=== PATIENT | female | born 1990 | race Hispanic/Latino ===

== ENCOUNTER 2019-01-22 09:45 | Inpatient (IN) ==
[2019-01-22 10:15] LABS: URINE SOURCE VOIDED
[2019-01-22] MEDS ORDERED: AMPICILLIN 2 GM/NS 2 GM/100 ML IVPB IV ONE (10:20)
[2019-01-22] MEDS ORDERED: PEPCID PO PRN (10:20)
[2019-01-22] MEDS ORDERED: LR 500 ML IV ONE (10:20)
[2019-01-22] MEDS ORDERED: STADOL IV PRN (10:20)
[2019-01-22] MEDS ORDERED: PEPCID PO ONE (10:20)
[2019-01-22] MEDS ORDERED: REGLAN PO ONE (10:20)
[2019-01-22] MEDS ORDERED: ZOFRAN IV PRN (10:20)
[2019-01-22] MEDS ORDERED: PEPCID IV PRN (10:20)
[2019-01-22] MEDS ORDERED: KEFZOL 1 GM/D5W 1 GM/50 ML IVPB IV PRN (10:20)
[2019-01-22] MEDS ORDERED: LR 2,000 ML ONE (10:30)
[2019-01-22] MEDS ORDERED: LR 1,000 ML IV SCH (10:30)
[2019-01-22] MEDS ORDERED: AMPICILLIN 2 GM/NS 2 GM/100 ML IVPB ONE (10:30)
[2019-01-22] MEDS ORDERED: PITOCIN 30 UNITS/NS 30 UNIT/500 ML IV.SOLN IV SCH ×2 (10:30→14:15)
[2019-01-22] MEDS ORDERED: SODIUM CHLORIDE 0.9% INJ SCH (10:30)
[2019-01-22 10:56] LABS: BILIRUBIN URINE NEGATIVE (NEGATIVE); BLOOD URINE TRACE (NEGATIVE); CLARITY CLEAR (CLEAR); COLOR YELLOW; GLUCOSE URINE NEGATIVE (NEGATIVE); KETONE URINE TRACE mg/dL (NEGATIVE); LEUKOCYTES URINE 1+ (NEGATIVE); NITRITE URINE NEGATIVE (NEGATIVE); PH URINE 6.5; PROTEIN URINE NEGATIVE (NEGATIVE); SP GRAVITY URINE 1.015; UROBILINOGEN URINE NORMAL
[2019-01-22] MEDS ORDERED: MINERAL OIL PO ONE (10:56)
[2019-01-22] MEDS ORDERED: XYLOCAINE-MPF 1% INJ ONE (10:56)
[2019-01-22 11:00] LABS: BASO# 0.01 X1000 (0.0-0.2); BASO% 0.1 % (0.0-0.8); EOS# 0.06 X1000 (0.0-0.7); EOS% 0.7 % (0.0-10.0); HEMOGLOBIN 12.9 g/dL (12.0-16.0); IMM GRAN# 0.09 X1000 (0.0-0.04); LYMPH# 2.11 X1000 (1.2-3.4); MCH 29.1 PG (27-31); MCHC 33.1 g/dL (33-37); MONO% 6.8 % (1.7-9.3); MPV 11.5 FL (7.4-10.4); NEUT# 5.94 X1000 (1.4-6.5); NEUT% 67.4 % (42.2-75.2); PLT 234 X1000 (130-400); RBC 4.43 XMIL (4.2-5.4); RDW 15.3 % (11.5-14.5); WBC 8.81 X1000 (4.8-10.8)
[2019-01-22] MEDS ORDERED: FENTANYL-BUPIV-NS 2 MCG-0.1% 200 ML EPIDURAL SCH (11:00)
[2019-01-22 11:47] LABS: RAPID HIV PRESUMPTIVE NEGATIVE; RPR NON-REACTIVE (NONREACTIVE)
[2019-01-22 11:51] LABS: UR AMPHETAMINES QUAL NONE DETECTED (NONE DETECT); UR BARBITUATES QUAL NONE DETECTED (NONE DETECT); UR BENZODIAZEPIN QUAL NONE DETECTED (NONE DETECT); UR CANNABINOIDS QUAL NONE DETECTED (NONE DETECT); UR COCAINE QUAL NONE DETECTED (NONE DETECT); UR METHADONE QUAL NONE DETECTED (NONE DETECT); UR METHAMPHETAMINE QUAL NONE DETECTED (NONE DETECT); UR OPIATES QUAL NONE DETECTED (NONE DETECT); UR OXYCODONE QUAL NONE DETECTED (NONE DETECT); UR PCP QUAL NONE DETECTED (NONE DETECT); UR PROPOXYPHENE QUAL NONE DETECTED (NONE DETECT); UR TCA QUAL NONE DETECTED (NONE DETECT)
[2019-01-22] MEDS ORDERED: FENTANYL ONE (11:56)
[2019-01-22] MEDS ORDERED: MARCAINE 0.25% PF ONE (11:56)
--- NOTE | 2019-01-22 13:41 | HISTORY AND PHYSICAL ---
CHIEF COMPLAINT: Lower abdominal pain. HISTORY OF PRESENT ILLNESS: Patient presents to Labor and Delivery with complaint of regular contractions occurring every 2 to 3 minutes starting at 4 a.m. Reports good movement. Denies bleeding or leakage of fluid. The patient is a 28-year-old G3, P2-0-0-2 at 39w4d with 2 prior full- term vaginal deliveries and no stated complications, but no care with current . PAST MEDICAL HISTORY: GERD. PAST SURGICAL HISTORY: None. MEDICATIONS: vitamins and Tums. ALLERGIES: No known drug allergies. SOCIAL HISTORY: Denies tobacco, alcohol, or drug use. GYNECOLOGICAL HISTORY: Positive history of Chlamydia in 2013. No pelvic inflammatory disease. Menarche at age 17. OBSTETRICAL HISTORY: Two full-term vaginal deliveries. No complications. First in 2007, baby girl at 40 weeks and 5 days. Second in 2017, boy at 39 weeks. PHYSICAL EXAMINATION: VITAL SIGNS: Stable. GENERAL: No acute distress. Alert, awake, oriented x3. CARDIOVASCULAR: Regular rate and rhythm. RESPIRATORY: Clear to auscultation bilaterally. ABDOMEN: Gravid, nontender to palpation. EXTREMITIES: No calf tenderness. PELVIC: Sterile vaginal exam: 6 cm dilated, 80% effaced with bulging bag intact. External monitoring: baseline 145 beats per minute, moderate variability. Positive accelerations. Negative deceleration. [place]: 2 to 3 minutes. LABORATORY STUDIES: WBCs 8.1, hemoglobin 12.9, hematocrit 39, platelets 234,000. ASSESSMENT: Ms. Narvaez is a 28-year-old G3, P2-0-0-2 at 39 weeks and 4 days who presents to Labor and Delivery in early labor. PLAN: 1. Admit to Labor and Delivery. 2. Obtain routine labor labs. 3. Estimated weight 7 pounds. 4. Anticipate vaginal delivery. 5. IV pain medications or epidural p.r.n. pain management 6. Continuous monitoring 7. [facility]
[2019-01-22] MEDS ORDERED: XYLOCAINE-MPF 1% INJ PRN (14:11)
[2019-01-22] MEDS ORDERED: PITOCIN IM PRN (14:11)
[2019-01-22] MEDS ORDERED: ATARAX PO PRN (14:11)
[2019-01-22] MEDS ORDERED: CYTOTEC PO PRN (14:11)
[2019-01-22] MEDS ORDERED: M-M-R II VACCINE SUBQ ONE (14:11)
[2019-01-22] MEDS ORDERED: PERI MEDS (DERMOPLAST/NUPERCAINAL/TUCKS) MISC PRN (14:11)
[2019-01-22] MEDS ORDERED: BOOSTRIX VACCINE IM ONE (14:11)
[2019-01-22] MEDS ORDERED: BENADRYL PO PRN (14:11)
[2019-01-22] MEDS ORDERED: BENADRYL IV PRN (14:11)
[2019-01-22] MEDS ORDERED: MINERAL OIL PO PRN (14:11)
[2019-01-22] MEDS ORDERED: AMBIEN PO PRN (14:11)
[2019-01-22] MEDS ORDERED: HYDROXYZINE IM PRN (14:11)
[2019-01-22] MEDS ORDERED: PITOCIN 20 UNITS/NS 20 UNITS/1,000 ML IV.SOLN IV SCH (14:15)
[2019-01-22] MEDS ORDERED: AMPICILLIN 1 GM/NS 1 GM/50 ML IVPB IV SCH (14:22)
[2019-01-22 15:03] LABS: RUBELLA SCREEN IMMUNE (IMMUNE)
[2019-01-22] MEDS: MOTRIN PO PRN (22:38)
[2019-01-22] MEDS: PERICOLACE PO SCH (22:38)
[2019-01-23 06:29] LABS: BASO# 0.02 X1000 (0.0-0.2); BASO% 0.2 % (0.0-0.8); EOS# 0.11 X1000 (0.0-0.7); EOS% 1.1 % (0.0-10.0); HEMATOCRIT 35.8 % (37.0-47.0); HEMOGLOBIN 11.4 g/dL (12.0-16.0); IMM GRAN# 0.07 X1000 (0.0-0.04); IMM GRAN% 0.7 % (0.0-0.5); LYMPH% 27.1 % (20.5-51.1); MCH 28.6 PG (27-31); MCHC 31.8 g/dL (33-37); MCV 89.9 FL (81-99); MONO# 0.71 X1000 (0.11-0.59); MONO% 7.4 % (1.7-9.3); MPV 11.8 FL (7.4-10.4); NEUT% 63.5 % (42.2-75.2); PLT 217 X1000 (130-400); RBC 3.98 XMIL (4.2-5.4); RDW 15.4 % (11.5-14.5); WBC 9.61 X1000 (4.8-10.8)
[2019-01-23] MEDS ORDERED: PEPCID PO ONE (07:25)
--- NOTE | 2019-01-23 07:34 | OB/GYN PROGRESS NOTE ---
Progress Note OB - . OB Progress Note: Vital Signs - 24 hr 01/22/19 09:52 01/22/19 14:10 01/22/19 14:20 Temperature 97.2 F L Pulse Rate 98 H 89 88 Respiratory Rate 18 18 18 Blood Pressure 122/81 111/68 Blood Pressure [Left Arm] 111/68 111/60 O2 Sat by Pulse Oximetry 96 98 99 01/22/19 14:30 01/22/19 14:40 01/22/19 14:50 Temperature Pulse Rate 91 H 80 83 Respiratory Rate 18 16 16 Blood Pressure Blood Pressure [Left Arm] 112/56 109/65 110/68 O2 Sat by Pulse Oximetry 99 98 99 01/22/19 15:00 01/22/19 15:10 01/22/19 15:13 Temperature Pulse Rate 76 81 76 Respiratory Rate 18 18 Blood Pressure 119/76 Blood Pressure [Left Arm] 113/70 119/76 O2 Sat by Pulse Oximetry 98 100 100 01/22/19 20:00 01/22/19 23:45 01/23/19 05:00 Temperature 98.1 F 96.5 F L 97.8 F Pulse Rate 90 86 87 Respiratory Rate 18 16 16 Blood Pressure 108/67 109/68 112/70 Blood Pressure [Left Arm] O2 Sat by Pulse Oximetry 95 96 97 01/23/19 07:09 Temperature 98.5 F Pulse Rate Respiratory Rate 20 Blood Pressure 110/56 Blood Pressure [Left Arm] O2 Sat by Pulse Oximetry 98 Laboratory Results - last 24 hr 01/22/19 01/22/19 01/22/19 09:50 09:50 10:50 WBC RBC Hgb Hct MCV MCH MCHC RDW Std Deviation Plt Count MPV Immature Gran % (Auto) Neut % (Auto) Lymph % (Auto) [place] % (Auto) Eos % (Auto) Baso % (Auto) Immature Gran # (Auto) Neut # (Auto) Lymph # (Auto) [place] # (Auto) Eos # (Auto) Baso # (Auto) Glucose 108 H Urine Source VOIDED Urine Color YELLOW Urine Clarity CLEAR Urine pH 6.5 Ur Specific Conrad 1.015 Urine Protein NEGATIVE Urine Ketones TRACE Urine Blood TRACE Urine Nitrite NEGATIVE Urine Bilirubin NEGATIVE Urine Urobilinogen NORMAL Urine WBC 1+ A Urine Glucose NEGATIVE Urine Opiates Screen NONE DETECTED Ur Oxycodone Screen NONE DETECTED Urine Methadone Screen NONE DETECTED U Propoxyphene Qual NONE DETECTED Ur Barbituates Screen NONE DETECTED Ur Tricyclics Screen NONE DETECTED Ur Phencyclidine Scrn NONE DETECTED Ur Amphetamines Screen NONE DETECTED U Methamphetamines Scrn NONE DETECTED U Benzodiazepines Scrn NONE DETECTED Urine Cocaine Screen NONE DETECTED U Cannabinoids Screen NONE DETECTED RPR HIV 1&2 Antibody Rapid Rubella Immunity Screen Blood Type Antibody Screen 01/22/19 01/22/19 01/22/19 10:50 10:50 10:50 WBC 8.81 RBC 4.43 Hgb 12.9 Hct 39.0 MCV 88.0 MCH 29.1 MCHC 33.1 RDW Std Deviation 15.3 H Plt Count 234 MPV 11.5 H Immature Gran % (Auto) 1.0 H Neut % (Auto) 67.4 Lymph % (Auto) 24.0 [place] % (Auto) 6.8 Eos % (Auto) 0.7 Baso % (Auto) 0.1 Immature Gran # (Auto) 0.09 H Neut # (Auto) 5.94 Lymph # (Auto) 2.11 [place] # (Auto) 0.60 H Eos # (Auto) 0.06 Baso # (Auto) 0.01 Glucose Urine Source Urine Color Urine Clarity Urine pH Ur Specific Conrad Urine Protein Urine Ketones Urine Blood Urine Nitrite Urine Bilirubin Urine Urobilinogen Urine WBC Urine Glucose Urine Opiates Screen Ur Oxycodone Screen Urine Methadone Screen U Propoxyphene Qual Ur Barbituates Screen Ur Tricyclics Screen Ur Phencyclidine Scrn Ur Amphetamines Screen U Methamphetamines Scrn U Benzodiazepines Scrn Urine Cocaine Screen U Cannabinoids Screen RPR NON-REACTIVE HIV 1&2 Antibody Rapid PRESUMPTIVE NEGATIVE Rubella Immunity Screen IMMUNE Blood Type B POSITIVE Antibody Screen NEGATIVE 01/23/19 06:08 WBC 9.61 RBC 3.98 L Hgb 11.4 L Hct 35.8 L MCV 89.9 MCH 28.6 MCHC 31.8 L RDW Std Deviation 15.4 H Plt Count 217 MPV 11.8 H Immature Gran % (Auto) 0.7 H Neut % (Auto) 63.5 Lymph % (Auto) 27.1 [place] % (Auto) 7.4 Eos % (Auto) 1.1 Baso % (Auto) 0.2 Immature Gran # (Auto) 0.07 H Neut # (Auto) 6.10 Lymph # (Auto) 2.60 [place] # (Auto) 0.71 H Eos # (Auto) 0.11 Baso # (Auto) 0.02 Glucose Urine Source Urine Color Urine Clarity Urine pH Ur Specific [place] Urine Protein Urine Ketones Urine Blood Urine Nitrite Urine Bilirubin Urine Urobilinogen Urine WBC Urine Glucose Urine Opiates Screen Ur Oxycodone Screen Urine Methadone Screen U Propoxyphene Qual Ur Barbituates Screen Ur Tricyclics Screen Ur Phencyclidine Scrn Ur Amphetamines Screen U Methamphetamines Scrn U Benzodiazepines Scrn Urine Cocaine Screen U Cannabinoids Screen RPR HIV 1&2 Antibody Rapid Rubella Immunity Screen Blood Type Antibody Screen The pt is doing well no complaints minimal lochia desires to breastfeed. desires the Nexplanon O: Vitals as above Gen: AAOx3 NAD CV: RRR no g/m/r Lungs: CTAB no w/r/r Abd: +BS soft NT/ND fundus firm at u-2 Ext: no c/c/e Labs as above A: PPD#1 s/p NPC P: Cont current mgmt
[2019-01-23] MEDS: TYLENOL PO PRN ×2 (12:18→19:02)
[2019-01-23] MEDS: MOTRIN PO PRN ×2 (12:18→20:08)
[2019-01-23 17:28] LABS: HIV ANTIBODY SCREEN SEE COMMENTS
[2019-01-23] MEDS: PERICOLACE PO SCH (19:02)
[2019-01-24] MEDS: MOTRIN PO PRN (06:38)
--- NOTE | 2019-01-24 07:43 | OB/GYN PROGRESS NOTE ---
Progress Note OB - . OB Progress Note: Vital Signs - 24 hr 01/23/19 09:10 01/23/19 12:20 01/23/19 20:10 Temperature 96.3 F L 96.5 F L 96.3 F L Pulse Rate 86 78 79 Respiratory Rate 18 18 18 Blood Pressure 109/64 113/72 115/74 O2 Sat by Pulse Oximetry 96 97 01/24/19 03:50 Temperature 96.2 F L Pulse Rate 83 Respiratory Rate 18 Blood Pressure 110/67 O2 Sat by Pulse Oximetry Laboratory Results - last 24 hr 01/22/19 11:47 HIV 1&2 Antibody Screen SEE COMMENTS 28 yo PPD#2 s/p at term with no care Patient seen and examined, doing well. Minimal lochia. Pain controlled with Motrin. She is tolerating a regular diet. She denies any nausea, vomiting, diarrhea, constipation. She is voiding having bowel movements without difficulty. She desires Nexplanon for PP contraception. She declines circumcision. Site Worker consulted secondary to no care. Physical Exam-General - PHYSICAL EXAM-ADULT Initial Vital Signs Reviewed: Yes - CONSTITUTIONAL General Appearance: appears well, alert, no apparent distress - EYES Eyes: PERRL/EOMI - HEAD, EARS, NOSE, MOUTH & THROAT HENMT: normocephalic/atraumatic - RESPIRATORY Respiratory: lungs clear, normal breath sounds - CARDIOVASCULAR Cardiovascular: normal peripheral pulses, regular rate, rhythm - GASTROINTESTINAL (ABDOMEN) Abdominal Exam: normal bowel sounds, non tender, soft - GENITOURINARY Female Genitalia/Pelvic Exam: other (fundus firm, below umbilicus) - MUSCULOSKELETAL Extremity: normal range of motion, non-tender, no pedal edema - PSYCHIATRIC Psych/Mental Status: normal mood/affect Assessment/Plan - Assessment/Plan Assessment: 28 yo PPD#2 s/p at term with no care 1. HD stable, afebrile 2. SS consult 2/2 no care 3. Declines infant circumcision 4. labs WNL 5. Desires nexplanon for PP contraception 6. D/C home today, return to clinic in 2 weeks
[2019-01-24 08:04] LABS: HEPATITIS B SURFACE ANTIGEN SEE COMMENTS
[2019-01-24] MEDS: TYLENOL PO PRN (08:05)
[2019-01-24 08:39] VITALS: BP 129/75
--- NOTE | 2019-01-24 18:34 | DISCHARGE SUMMARY ---
ADMISSION DATE: 01/22/2019 DISCHARGE DATE: 01/24/2019 CONDITION ON DISCHARGE: Stable. FINAL DIAGNOSES: 1. A 28-year-old G3, P3, 0-0-3, day # 2 status post spontaneous vaginal delivery. 2. No care. PROCEDURES: Spontaneous vaginal delivery of viable male infant. HISTORY OF PRESENT ILLNESS: The patient is a 28-year-old, G3, P2, 0-0-2 who presented to labor and delivery with the complaint of regular contractions every 2-3 minutes. She had no care with this but had delivered 2 full-term vaginal deliveries in the past. Cervical exam upon arrival was 6 cm dilated, 80% effaced, with a bulging bag intact. She was admitted and underwent an uncomplicated spontaneous vaginal delivery. laboratory data was obtained. A Social Service consult was placed due to lack of care. She had a routine course and was deemed stable for discharge on day number 2. She declined circumcision. She desires to have a Nexplanon placed for contraception at her visit. LABORATORY DATA: White blood cell count 9.6, hemoglobin 11.4, hematocrit 35.8, platelets 217. Urine drug screen negative. Gonorrhea and chlamydia negative. RPR negative. Hepatitis B surface antigen negative. HIV negative. Rubella immune. Blood Type B+ with negative antibody screen. DISCHARGE MEDICATIONS: Motrin 800 mg p.o. every 8 hours p.r.n. cramping/pain, dispense #30, no refills. DISCHARGE INSTRUCTIONS: Nothing in the vagina for 6 weeks. No tampons, douching, or sex. Notify doctor with temperature > 100.4 F, heavy vaginal bleeding greater than a pad an hour, abnormal vaginal discharge, severe abdominal pain, or persistent nausea and vomiting. FOLLOWUP APPOINTMENT: follow up with Dr. Dumont in clinic in 2 weeks, appointment already made prior to discharge. [facility]
--- NOTE | 2019-01-31 08:34 | OPERATIVE NOTE ---
PROCEDURE DATE: 01/22/2019 PROCEDURE: Vaginal delivery. DESCRIPTION OF PROCEDURE: At 13:43, the patient delivered a viable male under epidural anesthesia. was suctioned with bulb. No nuchal cord was identified. The infant was placed on the patient's abdomen after delivery. The cord was clamped and cut. The placenta was delivered intact with a normal three-vessel cord. The fundus was firm with massage and IV Pitocin. There was a second-degree perineal laceration which was repaired with 2-0 chromic. Good hemostasis was established. There was no cervical laceration noted. Male infant weighing 7 pounds and 14 ounces with Apgars of 9 and 10 at 1 and 5 minutes respectively. EBL was 200 mL. Both mom and recovering well.
== END 2019-01-24 10:11 | disposition home or self-care (01) | DRG 807 ==
LOC: P.OPLD 09:45 → P.LD 09:48
PROVIDERS: ADMIT Obstetrics & Gynecology; ATTEND Obstetrics & Gynecology